=== PATIENT | male | born 1940 | race Caucasian/White ===

== ENCOUNTER 2019-09-13 10:05 | Emergency (ER) | payer MEDICARE ==
[~2019-09-13] VITALS: Ht 182.9 cm; Wt 78.0 kg
[2019-09-13] MEDS ORDERED: DIPHENHYDRAMINE 50 MG/ML, 1ML ONE (10:14)
[2019-09-13] MEDS ORDERED: DIPHENHYDRAMINE 50 MG/ML, 1ML IM ONE (10:30)
--- NOTE | 2019-09-13 10:54 | NUR ---
PT BIB EMS FOR FEVERS AND RASH. PT STATES HE USED A NEW TYPE OF SOAP. PT WAS MEDICATED AND WAS TO BE SENT BACK TO HOME RESIDENCE. NURSE AT [facility] SAID PT HAS BEEN FEJERONIMO. THIS INFORMATION WAS PASSED ONTO MD. PT TO STAY AND HAVE LABS DRAWN TO RULE OUT INFECTION. PT IS RESTING IN [facility] CONNECTED TO MONITORING EQUIPMENT. REPORT TO RHETT GREEN.
--- NOTE | 2019-09-13 10:59 | NUR ---
REPORT FROM LURDES DELANEY.
--- NOTE | 2019-09-13 11:27 | NUR ---
PT RESTING ON [facility]. JESSIES. FALL PRECAUTIONS IN PLACE, CALL LIGHT LEFT WITHIN REACH.
--- NOTE | 2019-09-13 11:33 | NUR ---
LAB AT BEDSIDE.
[2019-09-13 11:37] LABS: MICROSCOPIC INDICATED
[2019-09-13 12:07] LABS: BASOPHILS # (AUTO) 0.01 x10^3/uL (0-0.1); BASOPHILS % (AUTO) 0 % (0-1); EOSINOPHILS # (AUTO) 0.04 x10^3/uL (0-0.4); EOSINOPHILS % (AUTO) 0 % (1-7); LYMPHOCYTES # (AUTO) 0.43 x10^3/uL (1-3.4); LYMPHOCYTES % (AUTO) 5 % (22-44); MD NO; MEAN CORPUSCULAR HGB CONC 33.1 g/dL (33.2-36.2); MEAN CORPUSCULAR VOLUME 90.8 fL (81-97); MEAN PLATELET VOLUME 8.5 fL (7.4-10.4); MONOCYTES # (AUTO) 0.18 x10^3/uL (0.2-0.8); MONOCYTES % (AUTO) 2 % (2-9); NEUTROPHILS # (AUTO) 8.99 x10^3/uL (1.8-6.8); NEUTROPHILS % (AUTO) 93 % (42-75); PLATELET COUNT 115 x10^3/uL (130-400); RED BLOOD COUNT 4.73 x10^6/uL (4.38-5.82); RED CELL DISTRIBUTION WIDTH 14.1 % (9.4-14.8)
[2019-09-13 12:08] LABS: ALANINE AMINOTRANSFERASE 14 U/L (12-78); ALBUMIN 2.8 g/dL (3.4-5.0); ANION GAP 5 mmol/L (5-15); CALCIUM 7.7 mg/dL (8.5-10.1); CHLORIDE 107 mmol/L (98-107); CREATININE 1.07 mg/dL (0.7-1.3)
[2019-09-13 12:14] LABS: ALKALINE PHOSPHATASE 69 U/L (45-117); BILIRUBIN,TOTAL 0.5 mg/dL (0.2-1.0); TOTAL PROTEIN 6.5 g/dL (6.4-8.2)
[2019-09-13] MEDS ORDERED: CEFDINIR 300 MG CAPSULE PO ONE (13:30)
[2019-09-13] MEDS ORDERED: DOXYCYCLINE 100MG TABLET PO ONE (13:30)
[2019-09-13] MEDS ORDERED: CEFDINIR 300 MG CAPSULE ONE (14:15)
[2019-09-13] MEDS ORDERED: DOXYCYCLINE 100MG TABLET ONE (14:15)
[2019-09-13 14:17] VITALS: BP 123/69
--- NOTE | 2019-09-13 14:37 | NUR ---
PT EATING LUNCH. VSS. CALL TO [facility] WITH RAPID COVID RESULTS. 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
== END 2019-09-13 15:15 | disposition home or self-care (01) ==
LOC: ED 10:18
DX: J15.9 Unspecified bacterial pneumonia (principal); Z20.828 Contact with and (suspected) exposure to other viral communicable diseases; T78.40XA Allergy, unspecified, initial encounter; X58.XXXA Exposure to other specified factors, initial encounter; R21 Rash and other nonspecific skin eruption; I10 Essential (primary) hypertension
CPT/HCPCS: 36415; 71045; 80053; 81001; 83605; 84145; 85025; 86140; 87040; 87635; 96372; 99284; J1200; J7512